=== PATIENT | female | born 1965 | race Caucasian/White ===

== ENCOUNTER 2017-10-15 06:36 | Emergency (ER) | payer MEDICARE, OTHER ==
[2017-10-15 07:27] LABS: ADD MAN DIFF? NO
[2017-10-15 07:31] LABS: ABNORMAL IP MESSAGE 1; BASOPHILS % 0.3 % (0.0-2.0); EOSINOPHILS % 0.1 % (0.0-7.0); HEMATOCRIT 35.9 % (37.0-47.0); HEMOGLOBIN 11.1 g/dl (12.0-16.0); LYMPHOCYTES # 0.5 10^3/ul (0.8-2.9); LYMPHOCYTES % 7.5 % (15.0-51.0); MEAN CORPUSCULAR HEMOGLOBIN 26.4 pg (29.0-33.0); MEAN CORPUSCULAR HGB CONC 30.9 g/dl (32.0-37.0); MEAN CORPUSCULAR VOLUME 85.5 fl (82.0-101.0); MEAN PLATELET VOLUME 11.2 fl (7.4-10.4); MONOCYTE # 0.4 10^3/ul (0.3-0.9); MONOCYTES % 6.1 % (0.0-11.0); NEUTROPHIL # 6.2 10^3/ul (1.6-7.5); NEUTROPHILS % 85.2 % (39.0-77.0); PLATELET COUNT 185 10^3/UL (140-415); RED CELL DISTRIBUTION WIDTH 17.2 % (11.5-14.5)
[2017-10-15 07:31] LABS: WHITE BLOOD COUNT 7.2 10^3/ul (4.8-10.8)
[2017-10-15 07:36] LABS: POSITIVE DIFF @See below
[2017-10-15] MEDS: SOD CHLORIDE 0.9% 500 ML IV (07:44)
[2017-10-15 07:50] LABS: ALANINE AMINOTRANSFERASE 45 IU/L (13-69); ALBUMIN 3.8 g/dl (3.3-4.9); ALBUMIN/GLOBULIN RATIO 1.26; ALKALINE PHOSPHATASE 87 IU/L (42-121); ANION GAP 11 (8-16); ASPARTATE AMINO TRANSFERASE 27 IU/L (15-46); BILIRUBIN,INDIRECT 0.2 mg/dl (0-1.1); BILIRUBIN,TOTAL 0.2 mg/dl (0.2-1.3); BLOOD UREA NITROGEN 37 mg/dl (7-20); CARBON DIOXIDE 27 mmol/L (21-31); CHLORIDE 111 mmol/L (97-110); CREATININE 0.96 mg/dl (0.44-1.00); GLUCOSE 131 mg/dl (70-220); LIPASE 148 U/L (23-300); POTASSIUM 5.1 mmol/L (3.5-5.1); SODIUM 144 mmol/L (135-144); TOTAL PROTEIN 6.8 g/dl (6.1-8.1)
[2017-10-15 09:06] LABS: ADD UMIC NO; UR ASCORBIC ACID NEGATIVE (NEGATIVE); UR BILIRUBIN (Dip) NEGATIVE (NEGATIVE); UR BLOOD (Dip) NEGATIVE (NEGATIVE); UR CLARITY CLEAR (CLEAR); UR COLOR COLORLESS (YELLOW); UR GLUCOSE (Dip) NEGATIVE (NEGATIVE); UR KETONES (Dip) NEGATIVE (NEGATIVE); UR LEUKOCYTE ESTERASE (Dip) NEGATIVE Leu/ul (NEGATIVE); UR NITRITE (Dip) NEGATIVE (NEGATIVE); UR SPECIFIC GRAVITY (Dip) 1.002 (1.003-1.030); UR TOTAL PROTEIN (Dip) NEGATIVE (NEGATIVE); UR UROBILINOGEN (Dip) NEGATIVE (NEGATIVE)
== END 2017-10-15 09:30 | disposition home or self-care (01) ==
LOC: E/R 06:36
DX: E11.649 Type 2 diabetes mellitus with hypoglycemia without coma (principal); E86.0 Dehydration; I10 Essential (primary) hypertension; E66.9 Obesity, unspecified; E03.9 Hypothyroidism, unspecified; R47.81 Slurred speech; Z68.31 Body mass index [BMI] 31.0-31.9, adult; Z79.4 Long term (current) use of insulin; Z79.82 Long term (current) use of aspirin; Z79.84 Long term (current) use of oral hypoglycemic drugs
CPT/HCPCS: 36415; 70450; 80053; 81003; 82962; 83690; 85025; 99285-25

== ENCOUNTER → 2017-12-17 | Outpatient (CLI) | payer MEDICARE, OTHER | END | disposition home or self-care (01) | LOC: EKG 13:34 | DX: Z01.818 Encounter for other preprocedural examination (principal) | CPT/HCPCS: 71046; 93005 ==

== ENCOUNTER → 2018-03-11 | Outpatient (CLI) | payer MEDICARE, OTHER | END | disposition home or self-care (01) | LOC: RAD 16:31 | DX: Z00.00 Encounter for general adult medical examination without abnormal findings (principal) | CPT/HCPCS: 71046 ==

== ENCOUNTER 2018-06-28 13:01 | Emergency (ER) | payer MEDICARE, OTHER | END 2018-06-28 13:49 | disposition home or self-care (01) | LOC: FTE 13:01 | DX: R05 Cough (principal); E11.9 Type 2 diabetes mellitus without complications; I10 Essential (primary) hypertension; Z79.82 Long term (current) use of aspirin; Z79.4 Long term (current) use of insulin | CPT/HCPCS: 87206; 99283 ==

== ENCOUNTER → 2018-09-30 | Outpatient (CLI) | payer MEDICARE, OTHER ==
[2018-09-30 17:28] LABS: AADO2 Arterial 34.2 mmHg (7.0-24.0); Allen Test ACCEPTAB; Arterial Base Excess -2.2 mmol/L (-3.0-3); Arterial Blood Gas Oxygen Sat 92.6 mmHG (95.0-98.0); Arterial COHb 0.1 % (0.0-3.0); Arterial Fraction of Oxyhgb 92.3 % (93.0-99.0); Arterial HCO3 22.5 mmol/L (22.0-26.0); Arterial MetHb 0.2 % (0.0-1.5); Arterial pCO2 38.7 mmhg (35-45); MODE ROOM AIR; Site Right Radial
== END | disposition home or self-care (01) ==
LOC: LAB 16:48
DX: R79.81 Abnormal blood-gas level (principal)
CPT/HCPCS: 36600; 82803

== ENCOUNTER 2018-10-29 09:40 | Inpatient (IN) | payer MEDICARE, OTHER ==
[2018-10-29] MEDS: HYDROmorphONE 1 MG/ML SYG IV (10:22)
[2018-10-29] MEDS: ONDANSETRON 4 MG INJ IV (10:22)
[2018-10-29] MEDS: SOD CHLORIDE 0.9% 500 ML IV (10:22)
[2018-10-29 10:30] LABS: ADD MAN DIFF? NO
[2018-10-29 10:33] LABS: WHITE BLOOD COUNT 5.4 10^3/ul (4.8-10.8)
[2018-10-29 10:33] LABS: BASOPHILS % 0.4 % (0.0-2.0); EOSINOPHILS # 0.2 10^3/ul (0.0-0.5); EOSINOPHILS % 2.9 % (0.0-7.0); HEMATOCRIT 33.8 % (37.0-47.0); HEMOGLOBIN 10.9 g/dl (12.0-16.0); LYMPHOCYTES # 0.7 10^3/ul (0.8-2.9); LYMPHOCYTES % 13.1 % (15.0-51.0); MEAN CORPUSCULAR HEMOGLOBIN 27.5 pg (29.0-33.0); MEAN CORPUSCULAR HGB CONC 32.2 g/dl (32.0-37.0); MEAN CORPUSCULAR VOLUME 85.1 fl (82.0-101.0); MEAN PLATELET VOLUME 11.6 fl (7.4-10.4); MONOCYTE # 0.4 10^3/ul (0.3-0.9); NEUTROPHIL # 4.1 10^3/ul (1.6-7.5); NEUTROPHILS % 75.7 % (39.0-77.0); PLATELET COUNT 193 10^3/UL (140-415); RED BLOOD COUNT 3.97 10^6/ul (4.20-5.40); RED CELL DISTRIBUTION WIDTH 17.7 % (11.5-14.5)
[2018-10-29 10:52] LABS: INR 0.84; PROTIME 11.6 Sec (11.9-14.9); PT RATIO 0.9
[2018-10-29 10:53] LABS: ANION GAP 11 (5-13); BLOOD UREA NITROGEN 36 mg/dl (7-20); CALCIUM 9.1 mg/dl (8.4-10.2); CARBON DIOXIDE 22 mmol/L (21-31); CHLORIDE 108 mmol/L (97-110); CREATININE 1.16 mg/dl (0.44-1.00); Estimated GFR 49 mL/min (>60); GLUCOSE 221 mg/dl (70-220); PARTIAL THROMBOPLASTIN TIME 27.3 Sec (23.0-35.0); SODIUM 141 mmol/L (135-144)
[2018-10-29] MEDS ORDERED: ONDANSETRON 4 MG INJ IV (12:30)
[2018-10-29] MEDS ORDERED: GLUCOSE GEL 15 GRAM TUBE PO ×2 (17:00)
[2018-10-29] MEDS ORDERED: GLUCAGON 1 MG INJ IM (17:00)
[2018-10-29] MEDS ORDERED: DEXTROSE 50% 50 ML SYRINGE IV ×2 (17:00)
[2018-10-29] MEDS ORDERED: GLUCOSE GEL 15 GRAM TUBE BUCCAL (17:00)
[2018-10-29] MEDS ORDERED: GLIMEPIRIDE 4 MG TAB PO (17:55)
[2018-10-29] MEDS: metFORMIN 500 MG TAB PO (18:16)
[2018-10-29] MEDS: INSULIN ASPART [NOVOLOG] 3 ML PEN SC ×2 (18:17→20:17)
[2018-10-29] MEDS: morphine 2 MG INJ IV (18:23)
[2018-10-29] MEDS: ATORVASTATIN 40 MG TAB PO (20:15)
[2018-10-29] MEDS: MAGNESIUM OXIDE 400 MG TAB PO (20:15)
[2018-10-29] MEDS: ACETAMINOPHEN 325 MG TAB PO (20:15)
[2018-10-29] MEDS: LISINOPRIL 20 MG TAB PO (20:15)
[2018-10-29] MEDS: Insulin NOVOLOG SS MILD Algorithm (SS with meals and bedtime) SC (20:20)
[2018-10-29] MEDS ORDERED: RANITIDINE 150 MG TAB PO (21:00)
[2018-10-29] MEDS: INSULIN GLARGINE [LANTus] (100 UNITS/ML) SYG SC (22:24)
[2018-10-29] MEDS: morphine 4 MG/ML VIAL IV (22:26)
[2018-10-30 01:11] LABS: TROPONIN-I < 0.012 ng/ml (0.000-0.120)
[2018-10-30] MEDS: ACCU-CHEK XX (02:00)
[2018-10-30] MEDS: ACCUCHECK 2 AM XX (02:02)
[2018-10-30 05:42] LABS: TROPONIN-I < 0.012 ng/ml (0.000-0.120)
[2018-10-30] MEDS: morphine 4 MG/ML VIAL IV (06:01)
[2018-10-30] MEDS: LEVOTHYROXINE 100 MCG TAB PO (06:03)
[2018-10-30] MEDS: PANTOPRAZOLE (EC) 40 MG TAB PO (06:03)
[2018-10-30] MEDS: PIOGLITAZONE 30 MG TAB PO (08:45)
[2018-10-30] MEDS: ASPIRIN (EC) 81 MG TAB PO (08:45)
[2018-10-30] MEDS: LISINOPRIL 20 MG TAB PO ×2 (08:45→21:18)
[2018-10-30] MEDS: MAGNESIUM OXIDE 400 MG TAB PO ×2 (08:45→21:18)
[2018-10-30] MEDS: LINAGLIPTIN 5 MG TABLET PO (08:46)
[2018-10-30] MEDS: MULTIVITAMINS/MINERALS TAB PO (08:46)
[2018-10-30] MEDS: CHOLECALCIFEROL 2,000 UNIT CAP PO (08:46)
[2018-10-30] MEDS: metFORMIN 500 MG TAB PO ×2 (08:48→17:41)
[2018-10-30] MEDS: INSULIN ASPART [NOVOLOG] 3 ML PEN SC ×4 (08:51→21:00)
[2018-10-30] MEDS: ENOXAPARIN 40 MG/0.4 ML SYG SC (08:52)
[2018-10-30] MEDS: ATORVASTATIN 40 MG TAB PO (21:18)
[2018-10-30] MEDS: INSULIN GLARGINE [LANTus] (100 UNITS/ML) SYG SC (21:26)
[2018-10-31] MEDS: morphine 4 MG/ML VIAL IV ×2 (00:59→06:34)
[2018-10-31] MEDS: ACCU-CHEK XX (02:00)
[2018-10-31] MEDS: ACCUCHECK 2 AM XX (02:00)
[2018-10-31 02:19] LABS: IMMEDIATE SPIN CROSSMATCH 1 4
[2018-10-31] MEDS: LEVOTHYROXINE 100 MCG TAB PO (06:34)
[2018-10-31] MEDS: PANTOPRAZOLE (EC) 40 MG TAB PO (06:34)
[2018-10-31] MEDS: INSULIN ASPART [NOVOLOG] 3 ML PEN SC ×5 (07:50→20:58)
[2018-10-31] MEDS: metFORMIN 500 MG TAB PO ×2 (07:50→20:00)
[2018-10-31] MEDS: MAGNESIUM OXIDE 400 MG TAB PO ×2 (09:00→22:37)
[2018-10-31] MEDS: ASPIRIN (EC) 81 MG TAB PO (09:00)
[2018-10-31] MEDS: LISINOPRIL 20 MG TAB PO ×2 (09:00→22:38)
[2018-10-31] MEDS: LINAGLIPTIN 5 MG TABLET PO (09:00)
[2018-10-31] MEDS: ENOXAPARIN 40 MG/0.4 ML SYG SC (09:00)
[2018-10-31] MEDS: MULTIVITAMINS/MINERALS TAB PO (09:00)
[2018-10-31] MEDS: CHOLECALCIFEROL 2,000 UNIT CAP PO (09:00)
[2018-10-31] MEDS: PIOGLITAZONE 30 MG TAB PO (09:00)
[2018-10-31 09:51] LABS: ADD MAN DIFF? NO
[2018-10-31 09:54] LABS: WHITE BLOOD COUNT 5.8 10^3/ul (4.8-10.8)
[2018-10-31 09:54] LABS: BASOPHILS % 0.2 % (0.0-2.0); EOSINOPHILS # 0.1 10^3/ul (0.0-0.5); HEMATOCRIT 35.6 % (37.0-47.0); HEMOGLOBIN 11.1 g/dl (12.0-16.0); LYMPHOCYTES # 0.8 10^3/ul (0.8-2.9); MEAN CORPUSCULAR HEMOGLOBIN 26.6 pg (29.0-33.0); MEAN CORPUSCULAR HGB CONC 31.2 g/dl (32.0-37.0); MEAN CORPUSCULAR VOLUME 85.2 fl (82.0-101.0); MEAN PLATELET VOLUME 11.2 fl (7.4-10.4); MONOCYTE # 0.5 10^3/ul (0.3-0.9); MONOCYTES % 8.8 % (0.0-11.0); NEUTROPHIL # 4.4 10^3/ul (1.6-7.5); NEUTROPHILS % 76.5 % (39.0-77.0); PLATELET COUNT 181 10^3/UL (140-415); RED BLOOD COUNT 4.18 10^6/ul (4.20-5.40); RED CELL DISTRIBUTION WIDTH 17.5 % (11.5-14.5)
[2018-10-31] MEDS ORDERED: FENTAnyl 50 MCG/ML VIAL IV (12:00)
[2018-10-31] MEDS ORDERED: HYDROmorphONE 1 MG/5 ML IV SYRINGE IV ×3 (12:00)
[2018-10-31] MEDS ORDERED: PROCHLORPERAZINE 10 MG INJ IV (12:00)
[2018-10-31] MEDS ORDERED: hydrALAzine 20 MG INJ IV (12:00)
[2018-10-31] MEDS ORDERED: DIPHENHYDRAMINE 50 MG INJ IV (12:00)
[2018-10-31] MEDS ORDERED: LABETALOL HCL 20MG INJ IV (12:00)
[2018-10-31] MEDS ORDERED: MEPERIDINE 25 MG INJ IV (12:00)
[2018-10-31] MEDS ORDERED: ONDANSETRON 4 MG INJ IV (12:00)
[2018-10-31] MEDS ORDERED: MIDAZOLAM 1 MG/ML 2 ML INJ (12:15)
[2018-10-31] MEDS ORDERED: LIDOCAINE 2% (SDV) 5 ML INJ (12:15)
[2018-10-31] MEDS ORDERED: SUCCINYLCHOLINE CHLORIDE 100 MG/5 ML SYG IV (12:15)
[2018-10-31] MEDS: POLYMYXIN/BACITRACIN 1L IRRIG IRR (13:10)
[2018-10-31] MEDS ORDERED: PROPOFOL 40 ML (13:41)
[2018-10-31] MEDS ORDERED: CEFAZOLIN 1 GM INJ ×2 (13:42→19:16)
[2018-10-31] MEDS ORDERED: ONDANSETRON 4 MG INJ (13:44)
[2018-10-31] MEDS ORDERED: FAMOTIDINE 20 MG INJ (13:44)
[2018-10-31] MEDS ORDERED: HYDROmorphONE 2 MG/ML SYG (14:33)
[2018-10-31] MEDS ORDERED: ROCURONIUM 50 MG INJ ×2 (14:37→14:39)
[2018-10-31] MEDS ORDERED: VANCOMYCIN 1 GM INJ (17:33)
[2018-10-31] MEDS ORDERED: NEOSTIGMINE 3 MG/3 ML SYRINGE (17:43)
[2018-10-31] MEDS ORDERED: GLYCOPYRROLATE 0.4 MG INJ (17:43)
[2018-10-31] MEDS ORDERED: NACL 0.9% 3 ML SYG IV (18:30)
[2018-10-31] MEDS ORDERED: HYDROmorphONE 1 MG/ML SYG IV (18:30)
[2018-10-31] MEDS: SOD CHLORIDE 0.9% 1,000 ML IV (20:41)
[2018-10-31] MEDS: INSULIN GLARGINE [LANTus] (100 UNITS/ML) SYG SC (20:58)
[2018-10-31] MEDS: CEFAZOLIN 1 GM/50 ML (PMX) 50 ML IVPB (22:35)
[2018-10-31] MEDS: ATORVASTATIN 40 MG TAB PO (22:37)
[2018-11-01] MEDS: ACCU-CHEK XX (02:00)
[2018-11-01] MEDS: ACCUCHECK 2 AM XX (02:00)
[2018-11-01] MEDS: SOD CHLORIDE 0.9% 1,000 ML IV ×3 (04:04→18:41)
[2018-11-01] MEDS: CEFAZOLIN 1 GM/50 ML (PMX) 50 ML IVPB ×2 (04:08→12:40)
[2018-11-01 05:21] LABS: ADD MAN DIFF? NO
[2018-11-01 05:24] LABS: ABNORMAL IP MESSAGE 1; BASOPHILS % 0.2 % (0.0-2.0); EOSINOPHILS % 0.2 % (0.0-7.0); HEMATOCRIT 30.4 % (37.0-47.0); HEMOGLOBIN 9.6 g/dl (12.0-16.0); LYMPHOCYTES # 0.4 10^3/ul (0.8-2.9); LYMPHOCYTES % 7.1 % (15.0-51.0); MEAN CORPUSCULAR HEMOGLOBIN 27.1 pg (29.0-33.0); MEAN CORPUSCULAR HGB CONC 31.6 g/dl (32.0-37.0); MEAN CORPUSCULAR VOLUME 85.9 fl (82.0-101.0); MEAN PLATELET VOLUME 11.3 fl (7.4-10.4); MONOCYTE # 0.7 10^3/ul (0.3-0.9); MONOCYTES % 13.3 % (0.0-11.0); NEUTROPHIL # 4.1 10^3/ul (1.6-7.5); PLATELET COUNT 178 10^3/UL (140-415); RED BLOOD COUNT 3.54 10^6/ul (4.20-5.40); RED CELL DISTRIBUTION WIDTH 18.1 % (11.5-14.5)
[2018-11-01 05:24] LABS: WHITE BLOOD COUNT 5.2 10^3/ul (4.8-10.8)
[2018-11-01 05:39] LABS: ANION GAP 7 (5-13); BLOOD UREA NITROGEN 25 mg/dl (7-20); CALCIUM 8.2 mg/dl (8.4-10.2); CARBON DIOXIDE 25 mmol/L (21-31); CHLORIDE 109 mmol/L (97-110); CREATININE 1.08 mg/dl (0.44-1.00); Estimated GFR 53 mL/min (>60); GLUCOSE 153 mg/dl (70-220); POTASSIUM 4.8 mmol/L (3.5-5.1); SODIUM 141 mmol/L (135-144)
[2018-11-01 05:40] LABS: POSITIVE DIFF @See below
[2018-11-01] MEDS: PANTOPRAZOLE (EC) 40 MG TAB PO (06:11)
[2018-11-01] MEDS: LEVOTHYROXINE 100 MCG TAB PO (06:11)
[2018-11-01] MEDS: INSULIN ASPART [NOVOLOG] 3 ML PEN SC ×4 (08:19→21:09)
[2018-11-01] MEDS: ENOXAPARIN 40 MG/0.4 ML SYG SC (08:22)
[2018-11-01] MEDS: CHOLECALCIFEROL 2,000 UNIT CAP PO (08:22)
[2018-11-01] MEDS: PIOGLITAZONE 30 MG TAB PO (08:22)
[2018-11-01] MEDS: ASPIRIN (EC) 81 MG TAB PO (08:23)
[2018-11-01] MEDS: MULTIVITAMINS/MINERALS TAB PO (08:23)
[2018-11-01] MEDS: LISINOPRIL 20 MG TAB PO ×2 (08:23→21:03)
[2018-11-01] MEDS: MAGNESIUM OXIDE 400 MG TAB PO ×2 (08:23→21:02)
[2018-11-01] MEDS: LINAGLIPTIN 5 MG TABLET PO (08:23)
[2018-11-01] MEDS: metFORMIN 500 MG TAB PO ×2 (08:27→17:55)
[2018-11-01] MEDS: HYDROCODONE/APAP (5/325) TAB PO (16:05)
[2018-11-01] MEDS: ATORVASTATIN 40 MG TAB PO (21:02)
[2018-11-01] MEDS: INSULIN GLARGINE [LANTus] (100 UNITS/ML) SYG SC (21:09)
[2018-11-02] MEDS: ACCU-CHEK XX (02:00)
[2018-11-02 05:18] LABS: ADD MAN DIFF? NO
[2018-11-02 05:20] LABS: WHITE BLOOD COUNT 6.4 10^3/ul (4.8-10.8)
[2018-11-02 05:20] LABS: ABNORMAL IP MESSAGE 1; BASOPHILS % 0.2 % (0.0-2.0); EOSINOPHILS % 0.2 % (0.0-7.0); HEMATOCRIT 28.6 % (37.0-47.0); HEMOGLOBIN 9.2 g/dl (12.0-16.0); LYMPHOCYTES # 0.5 10^3/ul (0.8-2.9); LYMPHOCYTES % 8.5 % (15.0-51.0); MEAN CORPUSCULAR HEMOGLOBIN 27.1 pg (29.0-33.0); MEAN CORPUSCULAR HGB CONC 32.2 g/dl (32.0-37.0); MEAN CORPUSCULAR VOLUME 84.4 fl (82.0-101.0); MEAN PLATELET VOLUME 11.6 fl (7.4-10.4); MONOCYTE # 0.8 10^3/ul (0.3-0.9); MONOCYTES % 12.2 % (0.0-11.0); NEUTROPHILS % 78.4 % (39.0-77.0); PLATELET COUNT 173 10^3/UL (140-415); RED BLOOD COUNT 3.39 10^6/ul (4.20-5.40); RED CELL DISTRIBUTION WIDTH 18.2 % (11.5-14.5)
[2018-11-02 05:21] LABS: POSITIVE DIFF @See below
[2018-11-02 06:07] LABS: ANION GAP 7 (5-13); BLOOD UREA NITROGEN 27 mg/dl (7-20); CARBON DIOXIDE 24 mmol/L (21-31); CHLORIDE 108 mmol/L (97-110); CREATININE 0.99 mg/dl (0.44-1.00); Estimated GFR 59 mL/min (>60); GLUCOSE 189 mg/dl (70-220); POTASSIUM 4.4 mmol/L (3.5-5.1); SODIUM 139 mmol/L (135-144)
[2018-11-02] MEDS: LEVOTHYROXINE 100 MCG TAB PO (06:40)
[2018-11-02] MEDS: PANTOPRAZOLE (EC) 40 MG TAB PO (06:40)
[2018-11-02] MEDS: HYDROCODONE/APAP (10/325) TAB PO (08:04)
[2018-11-02] MEDS: INSULIN ASPART [NOVOLOG] 3 ML PEN SC ×5 (08:54→21:08)
[2018-11-02] MEDS: metFORMIN 500 MG TAB PO ×2 (08:56→17:51)
[2018-11-02] MEDS: CHOLECALCIFEROL 2,000 UNIT CAP PO (09:30)
[2018-11-02] MEDS: MAGNESIUM OXIDE 400 MG TAB PO ×2 (09:30→21:12)
[2018-11-02] MEDS: LINAGLIPTIN 5 MG TABLET PO (09:30)
[2018-11-02] MEDS: LISINOPRIL 20 MG TAB PO ×2 (09:31→21:13)
[2018-11-02] MEDS: ASPIRIN (EC) 81 MG TAB PO (09:31)
[2018-11-02] MEDS: MULTIVITAMINS/MINERALS TAB PO (09:31)
[2018-11-02] MEDS: ENOXAPARIN 40 MG/0.4 ML SYG SC (09:34)
[2018-11-02] MEDS: PIOGLITAZONE 30 MG TAB PO (09:38)
[2018-11-02] MEDS: SOD CHLORIDE 0.9% 1,000 ML IV ×2 (10:04→16:17)
[2018-11-02 10:16] LABS: HEMOGLOBIN A1C 6.1 % (0-5.9)
[2018-11-02] MEDS: SENNA TAB PO ×2 (12:01→21:13)
[2018-11-02 14:01] LABS: UR AMORPHOUS CRYSTAL FEW /HPF (NONE SEEN); UR BACTERIA FEW /HPF (NONE SEEN); UR RBC 1 /HPF (0-5); UR WBC 1 /HPF (0-5)
[2018-11-02 14:15] LABS: UR CLARITY CLEAR (CLEAR); UR COLOR YELLOW (YELLOW)
[2018-11-02 14:16] LABS: ADD UMIC NO; UR ASCORBIC ACID NEGATIVE (NEGATIVE); UR BILIRUBIN (Dip) NEGATIVE (NEGATIVE); UR BLOOD (Dip) NEGATIVE (NEGATIVE); UR GLUCOSE (Dip) NEGATIVE (NEGATIVE); UR LEUKOCYTE ESTERASE (Dip) NEGATIVE Leu/ul (NEGATIVE); UR NITRITE (Dip) NEGATIVE (NEGATIVE); UR TOTAL PROTEIN (Dip) NEGATIVE (NEGATIVE); UR UROBILINOGEN (Dip) NEGATIVE (NEGATIVE)
[2018-11-02 14:18] LABS: UR KETONES (Dip) 1+ mg/dL (NEGATIVE)
[2018-11-02] MEDS: HYDROCODONE/APAP (5/325) TAB PO ×2 (15:14→21:14)
[2018-11-02] MEDS: INSULIN GLARGINE [LANTus] (100 UNITS/ML) SYG SC (21:09)
[2018-11-02] MEDS: ATORVASTATIN 40 MG TAB PO (21:12)
[2018-11-03] MEDS: ACCU-CHEK XX (02:00)
[2018-11-03 05:01] LABS: ADD MAN DIFF? NO
[2018-11-03 05:12] LABS: ABNORMAL IP MESSAGE 1; BASOPHILS % 0.2 % (0.0-2.0); EOSINOPHILS # 0.1 10^3/ul (0.0-0.5); EOSINOPHILS % 2.1 % (0.0-7.0); HEMATOCRIT 27.3 % (37.0-47.0); HEMOGLOBIN 8.6 g/dl (12.0-16.0); LYMPHOCYTES # 0.6 10^3/ul (0.8-2.9); MEAN CORPUSCULAR HEMOGLOBIN 26.9 pg (29.0-33.0); MEAN CORPUSCULAR HGB CONC 31.5 g/dl (32.0-37.0); MEAN CORPUSCULAR VOLUME 85.3 fl (82.0-101.0); MEAN PLATELET VOLUME 10.9 fl (7.4-10.4); MONOCYTE # 0.5 10^3/ul (0.3-0.9); MONOCYTES % 9.3 % (0.0-11.0); NEUTROPHIL # 4.1 10^3/ul (1.6-7.5); PLATELET COUNT 165 10^3/UL (140-415); RED CELL DISTRIBUTION WIDTH 18.2 % (11.5-14.5)
[2018-11-03 05:12] LABS: WHITE BLOOD COUNT 5.4 10^3/ul (4.8-10.8)
[2018-11-03 05:47] LABS: POSITIVE DIFF @See below
[2018-11-03 05:51] LABS: ANION GAP 5 (5-13); BLOOD UREA NITROGEN 25 mg/dl (7-20); CALCIUM 8.3 mg/dl (8.4-10.2); CARBON DIOXIDE 27 mmol/L (21-31); CHLORIDE 107 mmol/L (97-110); CREATININE 0.95 mg/dl (0.44-1.00); Estimated GFR > 60 mL/min (>60); GLUCOSE 119 mg/dl (70-220); POTASSIUM 4.4 mmol/L (3.5-5.1); SODIUM 139 mmol/L (135-144)
[2018-11-03] MEDS: PANTOPRAZOLE (EC) 40 MG TAB PO (06:06)
[2018-11-03] MEDS: LEVOTHYROXINE 100 MCG TAB PO (06:07)
[2018-11-03] MEDS: SOD CHLORIDE 0.9% 1,000 ML IV ×2 (06:08→15:59)
[2018-11-03] MEDS: INSULIN ASPART [NOVOLOG] 3 ML PEN SC ×7 (07:50→20:52)
[2018-11-03] MEDS: PIOGLITAZONE 30 MG TAB PO (08:35)
[2018-11-03] MEDS: ASPIRIN (EC) 81 MG TAB PO (08:35)
[2018-11-03] MEDS: MAGNESIUM OXIDE 400 MG TAB PO ×2 (08:35→20:50)
[2018-11-03] MEDS: CHOLECALCIFEROL 2,000 UNIT CAP PO (08:35)
[2018-11-03] MEDS: MULTIVITAMINS/MINERALS TAB PO (08:35)
[2018-11-03] MEDS: SENNA TAB PO ×2 (08:36→20:50)
[2018-11-03] MEDS: LISINOPRIL 20 MG TAB PO ×2 (08:36→20:50)
[2018-11-03] MEDS: LINAGLIPTIN 5 MG TABLET PO (08:36)
[2018-11-03] MEDS: ENOXAPARIN 40 MG/0.4 ML SYG SC (08:37)
[2018-11-03] MEDS: HYDROCODONE/APAP (10/325) TAB PO ×2 (08:41→15:59)
[2018-11-03] MEDS: metFORMIN 500 MG TAB PO ×2 (08:41→17:30)
[2018-11-03] MEDS: ATORVASTATIN 40 MG TAB PO (20:50)
[2018-11-03] MEDS: INSULIN GLARGINE [LANTus] (100 UNITS/ML) SYG SC (20:51)
[2018-11-04] MEDS: HYDROCODONE/APAP (5/325) TAB PO ×2 (01:15→22:17)
[2018-11-04] MEDS: ACCU-CHEK XX (02:00)
[2018-11-04] MEDS: LEVOTHYROXINE 100 MCG TAB PO (05:47)
[2018-11-04] MEDS: PANTOPRAZOLE (EC) 40 MG TAB PO (05:47)
[2018-11-04] MEDS: CHOLECALCIFEROL 2,000 UNIT CAP PO (08:58)
[2018-11-04] MEDS: LISINOPRIL 20 MG TAB PO ×2 (08:58→22:15)
[2018-11-04] MEDS: ASPIRIN (EC) 81 MG TAB PO (08:58)
[2018-11-04] MEDS: MAGNESIUM OXIDE 400 MG TAB PO ×2 (08:58→22:16)
[2018-11-04] MEDS: LINAGLIPTIN 5 MG TABLET PO (08:58)
[2018-11-04] MEDS: MULTIVITAMINS/MINERALS TAB PO (08:58)
[2018-11-04] MEDS: SENNA TAB PO ×2 (08:58→22:13)
[2018-11-04] MEDS: PIOGLITAZONE 30 MG TAB PO (08:59)
[2018-11-04] MEDS: ENOXAPARIN 40 MG/0.4 ML SYG SC (08:59)
[2018-11-04] MEDS: INSULIN ASPART [NOVOLOG] 3 ML PEN SC ×7 (09:00→21:00)
[2018-11-04] MEDS: metFORMIN 500 MG TAB PO ×2 (09:05→18:11)
[2018-11-04] MEDS: HYDROCODONE/APAP (10/325) TAB PO (09:05)
[2018-11-04] MEDS: ATORVASTATIN 40 MG TAB PO (22:14)
[2018-11-04] MEDS: INSULIN GLARGINE [LANTus] (100 UNITS/ML) SYG SC (23:12)
[2018-11-05] MEDS: ACCU-CHEK XX (02:00)
[2018-11-05 05:27] LABS: ADD MAN DIFF? NO
[2018-11-05 05:28] LABS: WHITE BLOOD COUNT 2.9 10^3/ul (4.8-10.8)
[2018-11-05 05:28] LABS: ABNORMAL IP MESSAGE 1; BASOPHILS % 0.3 % (0.0-2.0); EOSINOPHILS # 0.1 10^3/ul (0.0-0.5); EOSINOPHILS % 2.8 % (0.0-7.0); HEMATOCRIT 26.9 % (37.0-47.0); HEMOGLOBIN 8.4 g/dl (12.0-16.0); LYMPHOCYTES # 0.6 10^3/ul (0.8-2.9); LYMPHOCYTES % 19.6 % (15.0-51.0); MEAN CORPUSCULAR HEMOGLOBIN 26.4 pg (29.0-33.0); MEAN CORPUSCULAR HGB CONC 31.2 g/dl (32.0-37.0); MEAN CORPUSCULAR VOLUME 84.6 fl (82.0-101.0); MONOCYTE # 0.4 10^3/ul (0.3-0.9); MONOCYTES % 13.3 % (0.0-11.0); NEUTROPHIL # 1.8 10^3/ul (1.6-7.5); NEUTROPHILS % 62.3 % (39.0-77.0); NUCLEATED RED BLOOD CELLS% 0.7 /100WBC (0.0-0.0); PLATELET COUNT 177 10^3/UL (140-415); RED BLOOD COUNT 3.18 10^6/ul (4.20-5.40); RED CELL DISTRIBUTION WIDTH 17.6 % (11.5-14.5)
[2018-11-05 05:35] LABS: POSITIVE DIFF @See below
[2018-11-05 05:49] LABS: ANION GAP 3 (5-13); BLOOD UREA NITROGEN 19 mg/dl (7-20); CALCIUM 8.4 mg/dl (8.4-10.2); CARBON DIOXIDE 31 mmol/L (21-31); CHLORIDE 103 mmol/L (97-110); CREATININE 0.98 mg/dl (0.44-1.00); Estimated GFR 60 mL/min (>60); GLUCOSE 97 mg/dl (70-220); POTASSIUM 4.4 mmol/L (3.5-5.1); SODIUM 137 mmol/L (135-144)
[2018-11-05] MEDS: LEVOTHYROXINE 100 MCG TAB PO (06:45)
[2018-11-05] MEDS: HYDROCODONE/APAP (10/325) TAB PO ×2 (06:45→19:13)
[2018-11-05] MEDS: PANTOPRAZOLE (EC) 40 MG TAB PO (06:45)
[2018-11-05] MEDS: INSULIN ASPART [NOVOLOG] 3 ML PEN SC ×7 (07:50→21:00)
[2018-11-05] MEDS: MULTIVITAMINS/MINERALS TAB PO (08:28)
[2018-11-05] MEDS: PIOGLITAZONE 30 MG TAB PO (08:28)
[2018-11-05] MEDS: LISINOPRIL 20 MG TAB PO ×2 (08:28→21:03)
[2018-11-05] MEDS: SENNA TAB PO ×2 (08:28→21:02)
[2018-11-05] MEDS: ASPIRIN (EC) 81 MG TAB PO (08:29)
[2018-11-05] MEDS: MAGNESIUM OXIDE 400 MG TAB PO ×2 (08:29→21:02)
[2018-11-05] MEDS: LINAGLIPTIN 5 MG TABLET PO (08:29)
[2018-11-05] MEDS: CHOLECALCIFEROL 2,000 UNIT CAP PO (08:29)
[2018-11-05] MEDS: metFORMIN 500 MG TAB PO ×2 (08:32→17:49)
[2018-11-05] MEDS: ENOXAPARIN 40 MG/0.4 ML SYG SC (08:33)
[2018-11-05] MEDS: INSULIN GLARGINE [LANTus] (100 UNITS/ML) SYG SC (21:00)
[2018-11-05] MEDS: ATORVASTATIN 40 MG TAB PO (21:02)
[2018-11-05] MEDS ORDERED: INSULIN GLARGINE [LANTus] (100 UNITS/ML) SYG SC (22:30)
[2018-11-06] MEDS: ACCU-CHEK XX (02:00)
[2018-11-06] MEDS: PANTOPRAZOLE (EC) 40 MG TAB PO (05:40)
[2018-11-06] MEDS: LEVOTHYROXINE 100 MCG TAB PO (05:40)
[2018-11-06] MEDS: LINAGLIPTIN 5 MG TABLET PO (08:55)
[2018-11-06] MEDS: MULTIVITAMINS/MINERALS TAB PO (08:56)
[2018-11-06] MEDS: CHOLECALCIFEROL 2,000 UNIT CAP PO (08:56)
[2018-11-06] MEDS: SENNA TAB PO ×2 (08:56→20:43)
[2018-11-06] MEDS: ASPIRIN (EC) 81 MG TAB PO (08:57)
[2018-11-06] MEDS: INSULIN ASPART [NOVOLOG] 3 ML PEN SC ×7 (08:58→20:59)
[2018-11-06] MEDS: ENOXAPARIN 40 MG/0.4 ML SYG SC (08:59)
[2018-11-06] MEDS: PIOGLITAZONE 30 MG TAB PO (09:03)
[2018-11-06] MEDS: MAGNESIUM OXIDE 400 MG TAB PO ×2 (09:05→20:46)
[2018-11-06] MEDS: LISINOPRIL 20 MG TAB PO ×2 (09:05→20:45)
[2018-11-06] MEDS: metFORMIN 500 MG TAB PO ×2 (09:10→17:50)
[2018-11-06] MEDS: HYDROCODONE/APAP (10/325) TAB PO (10:35)
[2018-11-06] MEDS: ATORVASTATIN 40 MG TAB PO (20:46)
[2018-11-06] MEDS: INSULIN GLARGINE [LANTus] (100 UNITS/ML) SYG SC (20:57)
[2018-11-06] MEDS ORDERED: INSULIN GLARGINE [LANTus] (100 UNITS/ML) SYG SC (21:00)
[2018-11-07] MEDS: ACCU-CHEK XX (02:00)
[2018-11-07] MEDS: PANTOPRAZOLE (EC) 40 MG TAB PO (06:15)
[2018-11-07] MEDS: LEVOTHYROXINE 100 MCG TAB PO (06:15)
[2018-11-07] MEDS: ASPIRIN (EC) 81 MG TAB PO (08:34)
[2018-11-07] MEDS: LINAGLIPTIN 5 MG TABLET PO (08:34)
[2018-11-07] MEDS: MULTIVITAMINS/MINERALS TAB PO (08:34)
[2018-11-07] MEDS: CHOLECALCIFEROL 2,000 UNIT CAP PO (08:34)
[2018-11-07] MEDS: metFORMIN 500 MG TAB PO ×2 (08:35→18:02)
[2018-11-07] MEDS: MAGNESIUM OXIDE 400 MG TAB PO (08:35)
[2018-11-07] MEDS: LISINOPRIL 20 MG TAB PO (08:35)
[2018-11-07] MEDS: PIOGLITAZONE 30 MG TAB PO (08:35)
[2018-11-07] MEDS: SENNA TAB PO (08:35)
[2018-11-07] MEDS: ENOXAPARIN 40 MG/0.4 ML SYG SC (08:36)
[2018-11-07] MEDS: INSULIN ASPART [NOVOLOG] 3 ML PEN SC ×6 (08:37→18:01)
== END 2018-11-07 18:30 | DRG 493 ==
LOC: MS1 10-31 21:21 → E/R 09:40 → MS1 12:07
PROVIDERS: Pediatrics
PROC: 0PSF04Z Reposition Right Humeral Shaft with Internal Fixation Device, Open Approach (ICD-10-PCS; principal; 2018-10-31 09:30)
PROC: 01N60ZZ Release Radial Nerve, Open Approach (ICD-10-PCS; 2018-10-31 09:30)
PROC: 30233N1 Transfusion of Nonautologous Red Blood Cells into Peripheral Vein, Percutaneous Approach (ICD-10-PCS; 2018-10-31 09:30)
DX: S42.351A Displaced comminuted fracture of shaft of humerus, right arm, initial encounter for closed fracture (principal); Z68.41 Body mass index [BMI] 40.0-44.9, adult; N17.9 Acute kidney failure, unspecified; S44.21XA Injury of radial nerve at upper arm level, right arm, initial encounter; S44.01XA Injury of ulnar nerve at upper arm level, right arm, initial encounter; E66.01 Morbid (severe) obesity due to excess calories; I10 Essential (primary) hypertension; E11.649 Type 2 diabetes mellitus with hypoglycemia without coma; E03.9 Hypothyroidism, unspecified; E78.5 Hyperlipidemia, unspecified; S80.212A Abrasion, left knee, initial encounter; S00.81XA Abrasion of other part of head, initial encounter; I25.2 Old myocardial infarction; W01.0XXA Fall on same level from slipping, tripping and stumbling without subsequent striking against object, initial encounter; Y92.014 Private driveway to single-family (private) house as the place of occurrence of the external cause; Z86.73 Personal history of transient ischemic attack (TIA), and cerebral infarction without residual deficits
CPT/HCPCS: 36415; 36430; 71045; 73060-RT; 73070; 80048; 81003; 82962; 83036; 84484; 84703; 85025; 85610; 85730; 86850; 86900; 86901; 86920; 87086; 93005; 93306; 96374; 96375; 97110; 97116; 97161; 97165; 97530; 97535; 99285-25